=== PATIENT | female | born 1970 | race Caucasian/White ===

== ENCOUNTER 2018-07-13 07:17 | Emergency (ER) | payer OTHER ==
[~2018-07-13] VITALS: Ht 170.2 cm; Wt 119.7 kg
[2018-07-13] MEDS ORDERED: THYROID (07:53)
[2018-07-13] MEDS ORDERED: PHENTERMINE H37.5 M1 (07:54)
== END 2018-07-13 10:21 | disposition home or self-care (01) ==
LOC: ER 07:17
DX: K59.09 Other constipation (principal); R10.2 Pelvic and perineal pain

== ENCOUNTER 2023-02-08 11:31 | Emergency (ER) | payer OTHER ==
[~2023-02-08] VITALS: Ht 172.7 cm; Wt 113.4 kg
[~2023-02-08 11:31] MED LIST: PHENTERMINE H37.5 M1; THYROID
[2023-02-08] MEDS ORDERED: SURFAK240 M1 PO (20:54)
== END 2023-02-08 21:01 | disposition home or self-care (01) ==
LOC: ER 11:31
DX: R53.81 Other malaise (principal); R00.2 Palpitations; K59.09 Other constipation; E03.8 Other specified hypothyroidism; Z20.822 Contact with and (suspected) exposure to COVID-19